=== PATIENT | male | born 1990 | race Caucasian/White ===

== ENCOUNTER 2017-08-08 02:56 | Emergency (ER) | payer MEDICAID, OTHER ==
[~2017-08-08] VITALS: Ht 185.4 cm; Wt 93.0 kg
[2017-08-08 02:56] VITALS: BP_SYST 125
[~2017-08-08 02:56] MED LIST: BECL8.7A6
[2017-08-08 04:00] VITALS: BP_SYST 134
== END 2017-08-08 04:00 | disposition home or self-care (01) ==
LOC: SED 02:56
DX: F15.10 Other stimulant abuse, uncomplicated (principal); J45.909 Unspecified asthma, uncomplicated; F17.210 Nicotine dependence, cigarettes, uncomplicated
CPT/HCPCS: 99283

== ENCOUNTER 2017-10-15 17:17 | Emergency (ER) | payer OTHER ==
[~2017-10-15] VITALS: Ht 185.4 cm; Wt 90.7 kg
[2017-10-15 17:26] VITALS: BP_SYST 141
[2017-10-15 17:43] VITALS: BP_SYST 128
== END 2017-10-15 17:43 | disposition home or self-care (01) ==
LOC: SED 17:17
DX: S60.456A Superficial foreign body of right little finger, initial encounter (principal); R03.0 Elevated blood-pressure reading, without diagnosis of hypertension; J45.909 Unspecified asthma, uncomplicated; W22.8XXA Striking against or struck by other objects, initial encounter; Y93.89 Activity, other specified; Y92.89 Other specified places as the place of occurrence of the external cause; Y99.8 Other external cause status
CPT/HCPCS: 99284

== ENCOUNTER 2018-01-24 04:59 | Emergency (ER) | payer SELFPAY ==
[~2018-01-24] VITALS: Ht 185.4 cm; Wt 83.9 kg
[2018-01-24 05:07] VITALS: BP_SYST 147
[2018-01-24] MEDS ORDERED: ceFAZolin SODIUM 1 GM VIAL IM ONE (06:30)
[2018-01-24 06:53] VITALS: BP_SYST 132
== END 2018-01-24 06:53 | disposition home or self-care (01) ==
LOC: SED 04:59
DX: L03.115 Cellulitis of right lower limb (principal); L03.116 Cellulitis of left lower limb; R03.0 Elevated blood-pressure reading, without diagnosis of hypertension; J45.909 Unspecified asthma, uncomplicated; Z91.09 Other allergy status, other than to drugs and biological substances
CPT/HCPCS: 96372; 99283; J0690

== ENCOUNTER 2018-11-08 17:59 | Emergency (ER) | payer MEDICAID ==
[~2018-11-08] VITALS: Ht 185.4 cm; Wt 95.3 kg
[2018-11-08 18:05] VITALS: BP_SYST 132
--- NOTE | 2018-11-08 18:05 | NUR ---
Patient triaged and placed in waiting room. VSS and patient appears in no acute distress at this time. Accompanied by self, awaiting available bed, and MD notified of need for MSE.
--- NOTE | 2018-11-08 18:43 | NUR ---
BROUGHT BACK TO BED #4 AND REPORT GIVEN TO MALINDA
--- NOTE | 2018-11-08 18:48 | NUR ---
NATI PRICE examining patient.
--- NOTE | 2018-11-08 18:53 | NUR ---
PATIENT CAME IN COMPLAINING OF SPIDER BITE THAT HE GOT 2 DAYS AGO. PATIENT NOT COMPLAINING OF PAIN, SOB, NAUSEA, OR VOMITING. PATIENT SAID IT WAS A BUMP YESTERDAY AND GOT WORST TODAY SO HE WANTED IT TO GET CHECKED OUT. PATIENT ALERT AND ORIENTED X4.
[2018-11-08] MEDS ORDERED: IBUPROFEN 800 MG TABLET PO ONE (19:00)
[2018-11-08] MEDS ORDERED: CEPHALEXIN 500 MG CAPSULE PO ONE (19:00)
[2018-11-08] MEDS ORDERED: SULFAMETHOXAZOLE/TRIMETHOPR DS 1 TABLET PO ONE (19:00)
[2018-11-08 19:14] VITALS: BP_SYST 132
--- NOTE | 2018-11-08 19:16 | NUR ---
Patient given written and verbal discharge instructions and verbalizes understanding. ER MD discussed with patient the results and treatment provided. Patient in stable condition. ID arm band removed. IV catheter removed intact and dressing applied, no active bleeding. Rx of Keflex, Mupirocin, Bactrim, and Motrin given. Patient educated on pain management and to follow up with PMD. Pain Scale 0/10. Opportunity for questions provided and answered. Medication side effect fact sheet provided.
== END 2018-11-08 19:16 | disposition home or self-care (01) ==
LOC: SED 17:59
DX: S00.86XA Insect bite (nonvenomous) of other part of head, initial encounter (principal); F17.210 Nicotine dependence, cigarettes, uncomplicated; R03.0 Elevated blood-pressure reading, without diagnosis of hypertension; J45.909 Unspecified asthma, uncomplicated; Z91.048 Other nonmedicinal substance allergy status; Z71.6 Tobacco abuse counseling; W57.XXXA Bitten or stung by nonvenomous insect and other nonvenomous arthropods, initial encounter; Y93.89 Activity, other specified; Y92.89 Other specified places as the place of occurrence of the external cause; Y99.8 Other external cause status
CPT/HCPCS: 99284

== ENCOUNTER 2019-04-28 18:36 | Emergency (ER) | payer MEDICAID ==
[~2019-04-28] VITALS: Ht 185.4 cm; Wt 81.6 kg
[2019-04-28 19:55] VITALS: BP_SYST 125
--- NOTE | 2019-04-28 20:05 | NUR ---
Pt placed to ER waiting room in stable condition.
--- NOTE | 2019-04-28 21:42 | NUR ---
Pt placed to ER bed 06. Report to VIVEK Nevarez.
--- NOTE | 2019-04-28 22:10 | NUR ---
Dr. Elizondo bedside for Pt eval
[2019-04-28] MEDS ORDERED: CEPHALEXIN 500 MG CAPSULE PO ONE (22:15)
[2019-04-28] MEDS ORDERED: LIDOCAINE/EPI 1% 1:100000 20 ML VIAL INJ ONE (22:15)
[2019-04-28] MEDS ORDERED: HYDROcodone/ACETAMIN 5-325 MG TAB (NORCO/ VICODIN) PO ONE (22:15)
[2019-04-28] MEDS ORDERED: SULFAMETHOXAZOLE/TRIMETHOPR DS 1 TABLET PO ONE (22:15)
[2019-04-28] MEDS ORDERED: ONDANSETRON 4 MG ODT TAB PO ONE (22:15)
--- NOTE | 2019-04-28 22:20 | NUR ---
Pt BIB family to ED C/O redness and swelling to the right upper extremity, localized lateral to antecubital appearance of abscess. The patient reports swelling and redness developed 2 days ago, gradually worsening. No other complaints and or injuries noted. VSS no s/s of acute distress. Resting on gurney rails up
[2019-04-28 23:35] VITALS: BP_SYST 125
--- NOTE | 2019-04-28 23:35 | NUR ---
Patient given written and verbal discharge instructions and verbalizes understanding. ER MD discussed with patient the results and treatment provided. Patient in stable condition. ID arm band removed. Rx of Bactrim, Zofran, keflex given. Patient educated on pain management and to follow up with PMD. Pain Scale Opportunity for questions provided and answered. Medication side effect fact sheet provided.
== END 2019-04-28 23:35 | disposition home or self-care (01) ==
LOC: SED 18:36
DX: L02.413 Cutaneous abscess of right upper limb (principal); J45.909 Unspecified asthma, uncomplicated
CPT/HCPCS: 10060; 99284; Q0162

== ENCOUNTER 2019-05-11 04:41 | Emergency (ER) | payer MEDICAID ==
[~2019-05-11] VITALS: Ht 185.4 cm; Wt 81.6 kg
[2019-05-11 04:44] VITALS: BP_SYST 153
[2019-05-11] MEDS ORDERED: PREDNISONE 10 MG TABLET PO ONE (05:00)
[2019-05-11] MEDS ORDERED: LevALBUTEROL HCL 1.25 MG/0.5 ML *CONC.* VIAL.NEB (XOPENEX CONC.) INH ONE ×3 (05:00→05:28)
[2019-05-11] MEDS ORDERED: PREDNISONE 20 MG TABLET PO ONE (05:00)
[2019-05-11] MEDS ORDERED: IPRATROPIUM BROM 0.5 MG/2.5 ML VIAL.NEB (ATROVENT) IH ONE (05:00)
[2019-05-11] MEDS ORDERED: PREDNISONE 10 MG TABLET ONE (05:14)
[2019-05-11] MEDS ORDERED: IPRATROPIUM BROM 0.5 MG/2.5 ML VIAL.NEB (ATROVENT) INH ONE (05:28)
[2019-05-11 05:41] VITALS: BP_SYST 153
== END 2019-05-11 05:46 | disposition home or self-care (01) ==
LOC: SED 04:41
DX: J45.901 Unspecified asthma with (acute) exacerbation (principal); I10 Essential (primary) hypertension; R06.02 Shortness of breath; F17.290 Nicotine dependence, other tobacco product, uncomplicated; F12.90 Cannabis use, unspecified, uncomplicated
CPT/HCPCS: 94640; 99284; J7512; J7612

== ENCOUNTER 2019-06-17 11:56 | Emergency (ER) | payer MEDICAID ==
[~2019-06-17] VITALS: Ht 185.4 cm; Wt 86.2 kg
[2019-06-17 11:56] VITALS: BP_SYST 117
--- NOTE | 2019-06-17 11:56 | NUR ---
BROUGHT BACK TO BED #8 AND TRIAGED. REPORT GIVEN TO MAR
--- NOTE | 2019-06-17 11:57 | NUR ---
ER Dr. Sigala at bedside examining patient.
--- NOTE | 2019-06-17 12:05 | NUR ---
Patient presented to ER with difficulty breathing. Patient A&Ox4, afebrile, ambulatory to ER, skin pink and warm, wheezing, pain 01/24, denies N/V/D. Patient states he has difficulty breathing today since he woke up this morning. Patient states he has HX Asthma and ran out of Albuterol inhaler.
[2019-06-17] MEDS ORDERED: NACL 0.9% 1,000 ML IV ONE (12:15)
[2019-06-17] MEDS ORDERED: IPRATROPIUM/ALBUTEROL SULFATE 3 ML AMPUL.NEB (DUONEB) INH ONE ×2 (12:15→12:45)
[2019-06-17] MEDS ORDERED: methylPREDNISolone SOD SUCC/PF 62.5 MG/ML VIAL IVP ONE (12:15)
--- NOTE | 2019-06-17 12:26 | NUR ---
2 unsuccessful IV attempts made. Patient is refusing further IV attempts, states he feels better. Dr. Sigala made aware.
[2019-06-17 13:35] VITALS: BP_SYST 117
--- NOTE | 2019-06-17 13:35 | NUR ---
Patient given written and verbal discharge instructions and verbalizes understanding. ER MD discussed with patient the results and treatment provided. Patient in stable condition. ID arm band removed. IV catheter removed intact and dressing applied, no active bleeding. Rx of albuterol, prednisone, flovent given. Patient educated on pain management and to follow up with PMD. Pain Scale 0/10. Opportunity for questions provided and answered. Medication side effect fact sheet provided.
== END 2019-06-17 13:35 | disposition home or self-care (01) ==
LOC: SED 11:56
DX: J45.901 Unspecified asthma with (acute) exacerbation (principal); F17.210 Nicotine dependence, cigarettes, uncomplicated; Z91.048 Other nonmedicinal substance allergy status; Z79.899 Other long term (current) drug therapy; Z71.6 Tobacco abuse counseling
CPT/HCPCS: 94640; 99284; J2930; J7620; 99283

== ENCOUNTER 2019-10-12 13:28 | Emergency (ER) | payer MEDICAID ==
[~2019-10-12] VITALS: Ht 185.4 cm; Wt 83.9 kg
[2019-10-12 13:28] VITALS: BP_SYST 130
[2019-10-12 15:40] VITALS: BP_SYST 130
== END 2019-10-12 15:40 | disposition home or self-care (01) ==
LOC: SED 13:28
DX: H44.003 Unspecified purulent endophthalmitis, bilateral (principal); J45.909 Unspecified asthma, uncomplicated; Z91.09 Other allergy status, other than to drugs and biological substances
CPT/HCPCS: 99283

== ENCOUNTER 2019-10-30 07:14 | Emergency (ER) | payer MEDICAID ==
[~2019-10-30] VITALS: Ht 185.4 cm; Wt 72.6 kg
[2019-10-30 07:21] VITALS: BP_SYST 110
[2019-10-30] MEDS ORDERED: NACL 0.9% 1,000 ML IV ONE (07:45)
[2019-10-30 08:03] LABS: BASOPHILS % (AUTO) 0.2 % (0.0-2.0); EOSINOPHILS # (AUTO) 0.1 K/uL (0.0-0.4); HEMATOCRIT 43.2 % (36-54); HEMOGLOBIN 14.9 g/dL (14.0-18.0); LYMPHOCYTES # (AUTO) 0.2 K/uL (1.0-5.5); LYMPHOCYTES % (AUTO) 2.4 % (20.5-51.5); MEAN CORPUSCULAR HEMOGLOBIN 29 pg (27-31); MEAN CORPUSCULAR HGB CONC 35 % (32-36); MEAN CORPUSCULAR VOLUME 85 fL (79.0-98.0); MONOCYTES % (AUTO) 0.5 % (1.7-9.3); NEUTROPHILS # (AUTO) 8.8 K/uL (1.8-7.7); NEUTROPHILS % (AUTO) 95.9 % (40.0-70.0); PLATELET COUNT (AUTO) 229 K/uL (130-430); RED BLOOD CELL COUNT(AUTO) 5.06 MIL/uL (4.2-6.2); RED CELL DISTRIBUTION WIDTH 13.7 % (9.0-15.0); WHITE BLOOD COUNT (AUTO) 9.2 K/uL (4.8-10.8)
[2019-10-30 08:16] LABS: CREATININE 1.06 mg/dL (0.55-1.30); POTASSIUM 3.3 mmol/L (3.5-5.1)
[2019-10-30 08:22] LABS: ALBUMIN 3.4 g/dL (3.4-4.8); TOTAL BILIRUBIN 1.7 mg/dL (0.0-1.0)
[2019-10-30 09:54] VITALS: BP_SYST 115
== END 2019-10-30 09:55 | disposition home or self-care (01) ==
LOC: SED 07:14
DX: M54.5 Low back pain (principal); J45.909 Unspecified asthma, uncomplicated; F15.90 Other stimulant use, unspecified, uncomplicated; Z88.8 Allergy status to other drugs, medicaments and biological substances
CPT/HCPCS: 36415; 80053; 82550; 85025; 99283; J7030

== ENCOUNTER 2020-01-15 14:51 | Emergency (ER) | payer MEDICAID ==
[~2020-01-15] VITALS: Ht 185.4 cm; Wt 86.2 kg
[2020-01-15 15:27] VITALS: BP_SYST 108
--- NOTE | 2020-01-15 15:50 | NUR ---
Called patient x1, no answer
--- NOTE | 2020-01-15 15:55 | NUR ---
Called pt x 2 , no answer
--- NOTE | 2020-01-15 16:30 | NUR ---
Called patient x 3, no answer.Pt LWBS
== END 2020-01-15 16:30 | disposition left against medical advice (07) ==
LOC: SED 14:51
DX: M79.601 Pain in right arm (principal); Z53.21 Procedure and treatment not carried out due to patient leaving prior to being seen by health care provider

== ENCOUNTER 2020-03-19 18:59 | Emergency (ER) | payer MEDICAID ==
[~2020-03-19] VITALS: Ht 185.4 cm; Wt 81.6 kg
[2020-03-19 19:00] VITALS: BP_SYST 137
--- NOTE | 2020-03-19 19:00 | NUR ---
Patient to ER bed 5 to gown for evaluation. Side rails up. Report given to JENELLE.
--- NOTE | 2020-03-19 19:10 | NUR ---
ER at bedside examining patient.
--- NOTE | 2020-03-19 19:15 | NUR ---
Pt biba for overdose of heroin and meth x today. Pt AxOx4 and cooperative, pt used his own narcan at home. Denies SOB, LOC, OR PAIN at this time. Will continue to monitor.
--- NOTE | 2020-03-19 20:35 | NUR ---
Pt wants to leave, aware. Pt able to walk w/ steady gait, O2 at 97-98 when walking. Denies dizziness. Pt states not having any narcan at home. Pt will be given narcan prescription. Pt given 24 hr pharmacy list, educated on getting narcan prescription if patient uses again.
--- NOTE | 2020-03-19 20:40 | NUR ---
Patient given written and verbal discharge instructions and verbalizes understanding. ER MD discussed with patient the results and treatment provided. Patient in stable condition. ID arm band removed. Rx of Narcan given. Patient educated on pain management and to follow up with PMD. PATIENT PROVIDED 24 HR PHARMACY LIST. Opportunity for questions provided and answered. Medication side effect fact sheet provided.
[2020-03-19 20:41] VITALS: BP_SYST 129
== END 2020-03-19 20:40 | disposition home or self-care (01) ==
LOC: SED 18:59
DX: T40.1X1A Poisoning by heroin, accidental (unintentional), initial encounter (principal); J45.909 Unspecified asthma, uncomplicated; F15.90 Other stimulant use, unspecified, uncomplicated; Z88.8 Allergy status to other drugs, medicaments and biological substances; Y92.89 Other specified places as the place of occurrence of the external cause
CPT/HCPCS: 99283

== ENCOUNTER 2020-05-02 01:38 | Emergency (ER) | payer MEDICAID ==
[~2020-05-02] VITALS: Ht 185.4 cm; Wt 79.4 kg
[2020-05-02 02:15] VITALS: BP_SYST 129
[2020-05-02] MEDS: NACL 0.9% 1,000 ML IV ONE (03:04)
[2020-05-02 03:07] LABS: HEMATOCRIT 44.2 % (36-54); HEMOGLOBIN 15.2 g/dL (14.0-18.0); MEAN CORPUSCULAR HEMOGLOBIN 28 pg (27-31); MEAN CORPUSCULAR HGB CONC 34 % (32-36); MEAN CORPUSCULAR VOLUME 81 fL (79.0-98.0); PLATELET COUNT (AUTO) 309 K/uL (130-430); RED BLOOD CELL COUNT(AUTO) 5.45 MIL/uL (4.2-6.2); WHITE BLOOD COUNT (AUTO) 13.4 K/uL (4.8-10.8)
[2020-05-02 03:09] LABS: BILIRUBIN,URINE NEGATIVE (NEGATIVE); BLOOD, URINE 1+ (NEGATIVE); CLARITY/URINE SL CLOUDY (CLEAR); COLOR,URINE YELLOW (YELLOW); GLUCOSE,URINE NEGATIVE (NEGATIVE); KETONES,URINE NEGATIVE (NEGATIVE); LEUKOCYTE ESTERASE ,URINE 1+ (NEGATIVE); NITRITE, URINE NEGATIVE (NEGATIVE); PROTEIN URINE 1+ (NEGATIVE); UROBILINOGEN,URINE 0.2 (0.2-1.0)
[2020-05-02 03:20] LABS: BARBITURATE, URINE NEGATIVE (NEG <=200); BENZODIAZEPINE, URINE NEGATIVE (NEG <=150); CANNABINOID, URINE POSITIVE (NEG <=50); COCAINE, URINE NEGATIVE (NEG <=150); METHAMPHETAMINES SCREEN,URINE POSITIVE (NEG <=500); OPIATE, URINE POSITIVE (NEG <=100); PHENCYCLIDINE SCREEN,URINE NEGATIVE (NEG <=25); UR TRICYCLIC ANTIDEPRESSANTS NEGATIVE (NEG <=300); URINE AMPHETAMINE POSITIVE (NEG <=500); URINE METHADONE NEGATIVE (NEG <=200); URINE OXYCODONE SCREEN NEGATIVE (NEG <=100); URINE PROPOXYPHENE SCREEN NEGATIVE (NEG <=300)
[2020-05-02 03:30] LABS: CALCIUM 8.5 mg/dL (8.4-11.0); CREATININE 0.7 mg/dL (0.55-1.30); POTASSIUM 3.3 mmol/L (3.5-5.1)
[2020-05-02 03:34] LABS: BACTERIA,URINE FEW /HPF (None Seen); RBC,URINE >100 /HPF (0-3); WBC,URINE >100 /HPF (0-3)
[2020-05-02 03:35] LABS: TOTAL BILIRUBIN 0.3 mg/dL (0.0-1.0)
[2020-05-02 03:45] LABS: ATYPICAL LYMPHOCYTES % 0 % (0-0); BAND % (MANUAL) 0 % (0-6); BASOPHILS % (MANUAL) 0 % (0-2); EOSINOPHILS % (MANUAL) 19 % (0-7); LYMPHOCYTES % (MANUAL) 11 % (20-46); MONOCYTES % (MANUAL) 6 % (0-11)
[2020-05-02] MEDS: KETOROLAC TROMETHAMINE 30 MG VIAL IVP ONE (03:54)
[2020-05-02] MEDS: cefTRIAXone 1 GM IVPB PREMIX 50 ML IV ONE (03:54)
[2020-05-02] MEDS: POTASSIUM CHLORIDE 20 MEQ TAB.PRT.SR PO ONE (03:55)
[2020-05-02] MEDS: AZITHROMYCIN 250 MG TABLET PO ONE (03:55)
[2020-05-02 04:55] VITALS: BP_SYST 123
== END 2020-05-02 04:55 | disposition home or self-care (01) ==
LOC: SED 01:38
DX: N39.0 Urinary tract infection, site not specified (principal); R10.12 Left upper quadrant pain; J45.909 Unspecified asthma, uncomplicated; Z88.8 Allergy status to other drugs, medicaments and biological substances
CPT/HCPCS: 36415; 80053; 80307; 81000; 82550; 83690; 85007; 85027; 87086; 96361; 96365; 96375; 99284; J0696; J1885; J7030; Q0144

== ENCOUNTER 2020-05-10 01:21 | Inpatient (IN) | payer MEDICAID, SELFPAY ==
[~2020-05-10] VITALS: Ht 185.4 cm; Wt 80.1 kg
[2020-05-10 01:25] VITALS: BP_SYST 119
--- NOTE | 2020-05-10 01:25 | NUR ---
Patient to ER bed 5 to gown for evaluation. Side rails up. Report given to NOVEMBER.
[2020-05-10] MEDS ORDERED: KETOROLAC TROMETHAMINE 30 MG VIAL IVP ONE (01:30)
--- NOTE | 2020-05-10 01:30 | NUR ---
PT AAO AND BIB AMBULANCE FOR ABDOMINAL PAIN X 1 DAY AFTER USING HEROIN. PT REPORTS CURRENT UTI INFECTION FOR THE PAST WEEK AND IS CURRENTLY TAKING PRESCRIBED ANBX. PT CURRENTLY HAS 102.5 FEVER AND SPO2 IN MID-80'S ON ARRIVAL. O2 APPLIED AT 3L NC. SPO2 NOW 94%
--- NOTE | 2020-05-10 01:35 | NUR ---
ER Dr. HERRERA at bedside examining patient.
--- NOTE | 2020-05-10 01:45 | NUR ---
Blood for labwork drawn from [facility] [employer]. Patient tolerated well.
--- NOTE | 2020-05-10 02:02 | NUR ---
X-ray at bedside.
[2020-05-10 02:06] LABS: BASOPHILS % (AUTO) 0.1 % (0.0-2.0); EOSINOPHILS % (AUTO) 9.8 % (0.0-4.0); HEMATOCRIT 40.3 % (36-54); HEMOGLOBIN 13.6 g/dL (14.0-18.0); LYMPHOCYTES # (AUTO) 0.2 K/uL (1.0-5.5); LYMPHOCYTES % (AUTO) 2.2 % (20.5-51.5); MEAN CORPUSCULAR HEMOGLOBIN 28 pg (27-31); MEAN CORPUSCULAR HGB CONC 34 % (32-36); MEAN CORPUSCULAR VOLUME 82 fL (79.0-98.0); MONOCYTES % (AUTO) 0.4 % (1.7-9.3); NEUTROPHILS # (AUTO) 8.6 K/uL (1.8-7.7); NEUTROPHILS % (AUTO) 87.5 % (40.0-70.0); PLATELET COUNT (AUTO) 222 K/uL (130-430); RED CELL DISTRIBUTION WIDTH 14.2 % (9.0-15.0); WHITE BLOOD COUNT (AUTO) 9.8 K/uL (4.8-10.8)
[2020-05-10 02:11] LABS: BILIRUBIN,URINE NEGATIVE (NEGATIVE); BLOOD, URINE NEGATIVE (NEGATIVE); CLARITY/URINE CLEAR (CLEAR); COLOR,URINE YELLOW (YELLOW); GLUCOSE,URINE NEGATIVE (NEGATIVE); KETONES,URINE NEGATIVE (NEGATIVE); LEUKOCYTE ESTERASE ,URINE NEGATIVE (NEGATIVE); NITRITE, URINE NEGATIVE (NEGATIVE); PH,URINE 5.5 (5.0-8.0); PROTEIN URINE NEGATIVE (NEGATIVE); UROBILINOGEN,URINE 0.2 (0.2-1.0)
[2020-05-10 02:23] LABS: BARBITURATE, URINE NEGATIVE (NEG <=200); BENZODIAZEPINE, URINE NEGATIVE (NEG <=150); CANNABINOID, URINE POSITIVE (NEG <=50); COCAINE, URINE NEGATIVE (NEG <=150); METHAMPHETAMINES SCREEN,URINE POSITIVE (NEG <=500); OPIATE, URINE POSITIVE (NEG <=100); PHENCYCLIDINE SCREEN,URINE NEGATIVE (NEG <=25); UR TRICYCLIC ANTIDEPRESSANTS NEGATIVE (NEG <=300); URINE AMPHETAMINE POSITIVE (NEG <=500); URINE METHADONE NEGATIVE (NEG <=200); URINE OXYCODONE SCREEN NEGATIVE (NEG <=100); URINE PROPOXYPHENE SCREEN NEGATIVE (NEG <=300)
--- NOTE | 2020-05-10 02:27 | NUR ---
Patient resting quietly. No acute distress noted. Vital signs within normal range.
[2020-05-10 02:29] LABS: ANION GAP 7 (5-15); CALCIUM 8.1 mg/dL (8.4-11.0); CHLORIDE 104 mmol/L (98-107); GLUCOSE 98 mg/dL (70-99); SODIUM SERUM 140 mmol/L (136-145); UREA NITROGEN, BLOOD 14 mg/dL (8-21)
[2020-05-10 02:34] LABS: ALANINE AMINOTRANSFERASE 54 U/L (12-78); ALBUMIN 2.9 g/dL (3.4-4.8); ASPARTATE AMINOTRANSFERASE 120 U/L (10-37); GFR AFRICAN AMERICAN 103 mL/min (>90); LACTATE DEHYDROGENASE 343 U/L (85-227)
[2020-05-10 02:35] LABS: C-REACTIVE PROTEIN QUANT < 0.2 mg/dL (0-0.5); INR 1.2 (0.80-1.20); PROTHROMBIN TIME 12.1 SECS (9.5-12.5)
[2020-05-10 02:36] LABS: FIBRINOGEN 286 mg/dL (200-400)
[2020-05-10] MEDS ORDERED: POTASSIUM CHLORIDE 20 MEQ TAB.PRT.SR PO ONE (02:45)
--- NOTE | 2020-05-10 02:50 | NUR ---
# 20 gauge angiocath placed to right forearm. Use of asceptic technique. Opsite placed over site. Blood return noted. Blood for lab drawn from site. Flushed with 10 cc of normal saline. No evidence of infiltration noted. Patient tolerated well.
--- NOTE | 2020-05-10 02:55 | NUR ---
Patient signed consent for CT scan with contrast.
--- NOTE | 2020-05-10 03:12 | NUR ---
Patient transported to radiology via gurney, accompanied by RT and RN.
[2020-05-10] MEDS ORDERED: IOHEXOL 350 mgI/mL, 150 ML INFUS..BTL IV ONE (03:18)
--- NOTE | 2020-05-10 03:23 | NUR ---
Patient came back from CT scan.
--- NOTE | 2020-05-10 03:29 | NUR ---
Patient is sleeping, Oxygen 88% RA, place Oxygen canula 3 L/min -Oxygen sat 95 %
[2020-05-10] MEDS ORDERED: PIPERACILLIN/TAZO 3.375 GM in NS 50 ML IV ONE (04:00)
[2020-05-10] MEDS ORDERED: NACL 0.9% 1,500 ML IV ONE (04:00)
--- NOTE | 2020-05-10 04:15 | NUR ---
Patient resting quietly. No acute distress noted. Vital signs within normal range.
[2020-05-10] MEDS ORDERED: PIPERACILLIN/TAZOBACTAM 3.375 GM/VIAL (ZOSYN) IV ONE (04:23)
--- NOTE | 2020-05-10 04:36 | NUR ---
Dr. Kelly at bedside to discuss with patient for treatment plan.
--- NOTE | 2020-05-10 05:17 | NUR ---
Patient woke up, provide a urinal.
--- NOTE | 2020-05-10 05:41 | NUR ---
Patient resting quietly. No acute distress noted. Vital signs within normal range.
--- NOTE | 2020-05-10 06:17 | NUR ---
Swabbed for Covid-19 as order and sent to lab.
--- NOTE | 2020-05-10 06:22 | NUR ---
Patient will be admitted to care of Dr. Carnes. Admitted to Tele unit. Will go to room 124B. Belongings list completed. Complete and up to date summary report printed. SBAR report to be given at bedside with opportunity for questions.
--- NOTE | 2020-05-10 06:38 | NUR ---
ADMISSION NOTE Received patient from ER via gurney. Patient admitted with diagnosis of PNEUMONIA. Patient is awake, alert, oriented X 4. Patient oriented to hospital room, call light, toileting, pain management and safety-teach back done. Patient informed that JONES will be HIS nurse and that their room number is 124B. Personal belongings checked and Belongings List documented. Call light within reach.
[2020-05-10 07:00] VITALS: BP_SYST 91
--- NOTE | 2020-05-10 07:03 | NUR ---
CONSULTATION PAGED/CALLED Reason for Consultation: [] PNA Person Who was Notified: [] PAGED DR BATES DIRECTLY Consulting Physician: [] DR Ksenia BATES Stripe Marker Specialty: [] PULMO Ordering Physician: [] DR PAREDES
--- NOTE | 2020-05-10 07:07 | NUR ---
CONSULTATION PAGED/CALLED Reason for Consultation: [] PNA Person Who was Notified: [] CHRIS Consulting Physician: [] DR MYRNA IVY Oil Well Logger Specialty: [] ID Ordering Physician: [] DR Ksenia PAREDES
[2020-05-10] MEDS ORDERED: NALOXONE HCL 0.4 MG/ML AMP (NARCAN) IVP PRN ×2 (07:30)
[2020-05-10] MEDS ORDERED: HYDROcodone/ACETAMIN 10-325 MG TAB PO PRN (07:30)
[2020-05-10] MEDS ORDERED: ACETAMINOPHEN 325 MG TABLET PO PRN (07:30)
[2020-05-10] MEDS ORDERED: LORazepam 2 MG/ML VIAL IVP PRN (07:30)
[2020-05-10] MEDS ORDERED: ALBUTEROL SULFATE 0.083% 2.5 MG/3 ML VIAL.NEB INH PRN (07:30)
[2020-05-10] MEDS ORDERED: HYDROcodone/ACETAMIN 5-325 MG TAB (NORCO/ VICODIN) PO PRN (07:30)
[2020-05-10] MEDS ORDERED: ONDANSETRON HCL 4 MG/2 ML VIAL IVP PRN (07:30)
[2020-05-10] MEDS ORDERED: D5/0.45 NS 1,000 ML IV SCH (07:30)
[2020-05-10 08:00] VITALS: BP_SYST 121
--- NOTE | 2020-05-10 08:00 | NUR ---
Initial note: Patient is alert, oriented x4, denies any pain or discomfort, only states hungry , need to eat food. Found 2 sandwiches plates empty at bedside, and serve him a breakfast tray. He is also on IVF D5 1/2 NS at 100 ml/hr, infusing well via right forearm # 20 G.
[2020-05-10 08:56] VITALS: BP_SYST 121
--- NOTE | 2020-05-10 10:30 | NUR ---
Ambulatory: Patient walks to the bathroom well with IV pole by himself. He did have Voided and 1 normal BM.
[2020-05-10] MEDS ORDERED: IPRATROPIUM BROM 0.5 MG/2.5 ML VIAL.NEB (ATROVENT) INH SCH (11:00)
[2020-05-10 11:42] VITALS: BP_SYST 94
[2020-05-10] MEDS ORDERED: PIPERACILLIN/TAZO 3.375/DEX-IS 50 ML IV SCH (12:00)
--- NOTE | 2020-05-10 13:31 | NUR ---
ATTENDING MD DR PAREDES WAS DIRECTLY PAGED, RE: INFORM HIM THAT PT LEFT AMA.
--- NOTE | 2020-05-10 13:46 | NUR ---
AMA: I was on my lunch break in cafeteria. Saw a patient was walking inside the cafeteria with private outfit but still have patient's ID on his wrist. Spoke to the patient but he states he wants to leave, because he doesn't have lunch tray. Inform him that he needs to be NPO for abdominal US, and he finished double portion for his breakfast. He states that he normally eat a lot. Tell him that the wind technician will be doing the test in 10 min then he can eat. But he still doesn't want to stay. Explain to him about risk of leaving and benefit of stay. He still insisting to leave. Give him sign AMA form, IV site got removed by himself, no sign of bleeding noted. ID band removed.
== END 2020-05-10 13:00 | disposition left against medical advice (07) | DRG 816 ==
LOC: SED 01:21 → STU 06:04
PROVIDERS: ADMIT Preventive Medicine Preventive Medicine/Occupational Environmental Medicine; ATTEND Preventive Medicine Preventive Medicine/Occupational Environmental Medicine
DX: T40.1X1A Poisoning by heroin, accidental (unintentional), initial encounter (principal); E87.2 Acidosis; E83.51 Hypocalcemia; E87.6 Hypokalemia; F15.10 Other stimulant abuse, uncomplicated; E88.09 Other disorders of plasma-protein metabolism, not elsewhere classified; F12.10 Cannabis abuse, uncomplicated; J69.0 Pneumonitis due to inhalation of food and vomit; F11.10 Opioid abuse, uncomplicated; J45.909 Unspecified asthma, uncomplicated; J96.00 Acute respiratory failure, unspecified whether with hypoxia or hypercapnia; Z20.828 Contact with and (suspected) exposure to other viral communicable diseases; R16.2 Hepatomegaly with splenomegaly, not elsewhere classified; Y92.89 Other specified places as the place of occurrence of the external cause
CPT/HCPCS: 36415; 36600; 71045; 71275; 80053; 80307; 81003; 82550-TC; 82728; 82803-TC; 83605; 83615-TC; 83880; 84484; 85025; 85379; 85384-TC; 85610-TC; 85730-TC; 86140; 87040-TC; 87086; 93005; 94640; 94760; 96365; 96368; 96372; 99291; G0378; J1885; J2543; J7613; Q9967; U0003

== ENCOUNTER 2020-05-10 18:52 | Inpatient (IN) | payer MEDICAID ==
[~2020-05-10] VITALS: Ht 185.4 cm; Wt 79.8 kg
[2020-05-10 19:00] VITALS: BP_SYST 110
[2020-05-10] MEDS ORDERED: KETOROLAC TROMETHAMINE 30 MG VIAL IM ONE (20:00)
[2020-05-10 20:07] LABS: HEMATOCRIT 32.7 % (36-54); HEMOGLOBIN 11.2 g/dL (14.0-18.0); MEAN CORPUSCULAR HEMOGLOBIN 28 pg (27-31)
[2020-05-10 20:14] LABS: MEAN CORPUSCULAR HGB CONC 34 % (32-36); MEAN CORPUSCULAR VOLUME 81 fL (79.0-98.0); PLATELET COUNT (AUTO) 190 K/uL (130-430); RED BLOOD CELL COUNT(AUTO) 4.04 MIL/uL (4.2-6.2); RED CELL DISTRIBUTION WIDTH 14.4 % (9.0-15.0)
[2020-05-10 20:19] LABS: CALCIUM 7.2 mg/dL (8.4-11.0); CHLORIDE 101 mmol/L (98-107); CREATININE 0.98 mg/dL (0.55-1.30); GLUCOSE 112 mg/dL (70-99); POTASSIUM 3.3 mmol/L (3.5-5.1); SODIUM SERUM 135 mmol/L (136-145); UREA NITROGEN, BLOOD 14 mg/dL (8-21); WHITE BLOOD COUNT (AUTO) 26.4 K/uL (4.8-10.8)
[2020-05-10 20:24] LABS: ANION GAP 3 (5-15); GFR AFRICAN AMERICAN 117 mL/min (>90)
[2020-05-10 20:25] LABS: ALANINE AMINOTRANSFERASE 73 U/L (12-78); ALBUMIN 2.3 g/dL (3.4-4.8); ASPARTATE AMINOTRANSFERASE 65 U/L (10-37); TOTAL BILIRUBIN 0.9 mg/dL (0.0-1.0)
[2020-05-10 20:34] LABS: ACETAMINOPHEN < 1 ug/mL (1-30); ALCOHOL, BLOOD < 3 mg/dL (<10)
[2020-05-10 21:04] LABS: BAND % (MANUAL) 34 % (0-6); BASOPHILS % (MANUAL) 0 % (0-2); EOSINOPHILS % (MANUAL) 2 % (0-7); LYMPHOCYTES % (MANUAL) 0 % (20-46); MONOCYTES % (MANUAL) 2 % (0-11)
[2020-05-10] MEDS ORDERED: NACL 0.9% 2,000 ML IV ONE (21:45)
[2020-05-10] MEDS ORDERED: PIPERACILLIN/TAZO 3.375 GM in NS 50 ML IV ONE (21:45)
[2020-05-10] MEDS ORDERED: VANCOMYCIN HCL 1,000 MG in NS 250 ML IV ONE (21:45)
[2020-05-10] MEDS ORDERED: PIPERACILLIN/TAZOBACTAM 3.375 GM/VIAL (ZOSYN) IV ONE (22:18)
[2020-05-10] MEDS ORDERED: VANCOMYCIN HCL 1000 MG/VIAL IV ONE (22:18)
[2020-05-10 23:18] LABS: BARBITURATE, URINE NEGATIVE (NEG <=200)
[2020-05-10 23:19] LABS: BENZODIAZEPINE, URINE NEGATIVE (NEG <=150); CANNABINOID, URINE NEGATIVE (NEG <=50); COCAINE, URINE NEGATIVE (NEG <=150); METHAMPHETAMINES SCREEN,URINE POSITIVE (NEG <=500); OPIATE, URINE POSITIVE (NEG <=100); PHENCYCLIDINE SCREEN,URINE NEGATIVE (NEG <=25); URINE AMPHETAMINE POSITIVE (NEG <=500); URINE METHADONE NEGATIVE (NEG <=200)
[2020-05-10 23:20] LABS: UR TRICYCLIC ANTIDEPRESSANTS NEGATIVE (NEG <=300); URINE OXYCODONE SCREEN NEGATIVE (NEG <=100); URINE PROPOXYPHENE SCREEN NEGATIVE (NEG <=300)
[2020-05-11 04:13] LABS: BILIRUBIN,URINE NEGATIVE (NEGATIVE); CLARITY/URINE CLEAR (CLEAR); COLOR,URINE YELLOW (YELLOW); GLUCOSE,URINE NEGATIVE (NEGATIVE); KETONES,URINE NEGATIVE (NEGATIVE); LEUKOCYTE ESTERASE ,URINE TRACE (NEGATIVE); NITRITE, URINE NEGATIVE (NEGATIVE); PH,URINE 5.5 (5.0-8.0); PROTEIN URINE NEGATIVE (NEGATIVE); UROBILINOGEN,URINE 0.2 (0.2-1.0)
[2020-05-11 04:15] LABS: BLOOD, URINE TRACE (NEGATIVE)
[2020-05-11 04:18] LABS: BACTERIA,URINE FEW /HPF (None Seen)
[2020-05-11] MEDS ORDERED: LR 1,000 ML IV ONE (07:45)
[2020-05-11] MEDS ORDERED: LORazepam 2 MG/ML VIAL IVP PRN (07:45)
[2020-05-11] MEDS ORDERED: ONDANSETRON HCL 4 MG/2 ML VIAL IM PRN (09:00)
[2020-05-11] MEDS: KETOROLAC TROMETHAMINE 15 MG VIAL IVP PRN (09:55)
[2020-05-11 10:00] VITALS: BP_SYST 109
[2020-05-11 12:20] VITALS: BP_SYST 121
[2020-05-11] MEDS: PIPERACILLIN/TAZO 3.375/DEX-IS 50 ML IV SCH ×2 (12:24→18:45)
[2020-05-11] MEDS ORDERED: NALOXONE HCL 0.4 MG/ML AMP (NARCAN) IVP PRN ×2 (15:00)
[2020-05-11] MEDS ORDERED: cloNIDine HCL 0.1 MG TABLET PO PRN (15:00)
[2020-05-11] MEDS ORDERED: HYDROcodone/ACETAMIN 5-325 MG TAB (NORCO/ VICODIN) PO PRN (15:00)
[2020-05-11] MEDS ORDERED: POTASSIUM CHLORIDE 20 MEQ/PKT PACKET PO ONE (15:45)
[2020-05-11] MEDS: VANCOMYCIN HCL 1,000 MG in NS 250 ML IV SCH (16:39)
[2020-05-11 16:55] VITALS: BP_SYST 125
[2020-05-11 20:10] VITALS: BP_SYST 105
[2020-05-11] MEDS: POTASSIUM CHLORIDE 20 MEQ TAB.PRT.SR PO SCH (20:15)
[2020-05-11] MEDS: HYDROcodone/ACETAMIN 10-325 MG TAB PO PRN (20:30)
[2020-05-12 00:25] VITALS: BP_SYST 114
[2020-05-12] MEDS: PIPERACILLIN/TAZO 3.375/DEX-IS 50 ML IV SCH ×3 (00:30→12:00)
[2020-05-12] MEDS: VANCOMYCIN HCL 1,000 MG in NS 250 ML IV SCH ×2 (01:15→08:00)
[2020-05-12] MEDS: KETOROLAC TROMETHAMINE 15 MG VIAL IVP PRN (01:35)
[2020-05-12] MEDS: HYDROcodone/ACETAMIN 10-325 MG TAB PO PRN (06:08)
[2020-05-12 06:38] LABS: BASOPHILS # (AUTO) 0.1 K/uL (0.0-0.2); BASOPHILS % (AUTO) 0.4 % (0.0-2.0); EOSINOPHILS # (AUTO) 4.6 K/uL (0.0-0.4); EOSINOPHILS % (AUTO) 29.5 % (0.0-4.0); HEMATOCRIT 34.3 % (36-54); HEMOGLOBIN 11.7 g/dL (14.0-18.0); LYMPHOCYTES # (AUTO) 1.9 K/uL (1.0-5.5); LYMPHOCYTES % (AUTO) 12.1 % (20.5-51.5); MEAN CORPUSCULAR HEMOGLOBIN 28 pg (27-31); MEAN CORPUSCULAR HGB CONC 34 % (32-36); MEAN CORPUSCULAR VOLUME 81 fL (79.0-98.0); MONOCYTES # (AUTO) 0.6 K/uL (0.0-1.0); MONOCYTES % (AUTO) 4.1 % (1.7-9.3); NEUTROPHILS # (AUTO) 8.4 K/uL (1.8-7.7); PLATELET COUNT (AUTO) 170 K/uL (130-430); RED BLOOD CELL COUNT(AUTO) 4.24 MIL/uL (4.2-6.2); RED CELL DISTRIBUTION WIDTH 14.4 % (9.0-15.0); WHITE BLOOD COUNT (AUTO) 15.6 K/uL (4.8-10.8)
[2020-05-12 08:00] VITALS: BP_SYST 104
[2020-05-12 08:05] LABS: CREATININE 0.82 mg/dL (0.55-1.30); POTASSIUM 3.9 mmol/L (3.5-5.1); TOTAL BILIRUBIN 0.4 mg/dL (0.0-1.0)
[2020-05-12 08:06] LABS: ALBUMIN 2.3 g/dL (3.4-4.8)
[2020-05-12 08:22] LABS: NEUTROPHILS % (AUTO) 53.9 % (40.0-70.0)
[2020-05-12] MEDS: POTASSIUM CHLORIDE 20 MEQ TAB.PRT.SR PO SCH (09:00)
== END 2020-05-12 21:28 | disposition left against medical advice (07) | DRG 720 ==
LOC: SED 18:52 → STU 05-11 07:40
PROVIDERS: ADMIT Internal Medicine; ATTEND Internal Medicine
DX: A41.9 Sepsis, unspecified organism (principal); E43 Unspecified severe protein-calorie malnutrition; D64.9 Anemia, unspecified; J45.909 Unspecified asthma, uncomplicated; F19.10 Other psychoactive substance abuse, uncomplicated; Z20.828 Contact with and (suspected) exposure to other viral communicable diseases; Z53.29 Procedure and treatment not carried out because of patient's decision for other reasons; Z88.8 Allergy status to other drugs, medicaments and biological substances; Z59.0 Homelessness
CPT/HCPCS: 36415; 70491-TC; 71260-TC; 72128; 72132-TC; 80053; 80307; 81000-TC; 83605; 83735-TC; 85007; 85025; 85027; 85651-TC; 86140; 87040-TC; 87081; 96365; 96368; 96372; 99291; G0378; G0480; G0481; G0482; J1885; J2543; J3370; J7050; J7120; Q9967; U0003

== ENCOUNTER 2020-06-02 03:07 | Emergency (ER) | payer MEDICAID ==
[~2020-06-02] VITALS: Ht 185.4 cm; Wt 86.2 kg
[2020-06-02 03:07] VITALS: BP_SYST 156
--- NOTE | 2020-06-02 03:10 | NUR ---
Patient to ER bed 2 to gown for evaluation. Side rails up.
--- NOTE | 2020-06-02 03:15 | NUR ---
PT BIBA FOR SOB STARTING 1 HOUR PRIOR TO ARRIVAL. PT REPORTS HX OF ASTHMA AND RECENTLY RAN OUT OF HIS INHALER. EMS STATES THAT HE WAS AROUND A CAT PRIOR TO HIS SOB AND PT IS ALLERGIC TO CAT AND DOG DANDER. PT RECEIVED BREATHING TX X 1 EN ROUTE. PT PRESENTS AAOX4, SOME WHEEZING IN BILATERAL LUNGS. V/S STABLE
--- NOTE | 2020-06-02 03:20 | NUR ---
ER DR. COOK AT THE BEDSIDE EVALUATING PT
[2020-06-02] MEDS ORDERED: predniSONE 20 MG TABLET PO ONE (03:45)
[2020-06-02] MEDS ORDERED: IPRATROPIUM/ALBUTEROL SULFATE 3 ML AMPUL.NEB (DUONEB) INH ONE ×2 (03:45→04:45)
--- NOTE | 2020-06-02 03:50 | NUR ---
RT AT THE BEDSIDE FOR BREATHING TX
--- NOTE | 2020-06-02 04:19 | NUR ---
PT SLEEPING IN BED, NO S/SX OF DISTRESS
--- NOTE | 2020-06-02 04:45 | NUR ---
RT AT THE BEDSIDE FOR BREATHING TX
--- NOTE | 2020-06-02 05:37 | NUR ---
Patient given written and verbal discharge instructions and verbalizes understanding. ER MD discussed with patient the results and treatment provided. Patient in stable condition. ID arm band removed. Rx of PREDNISONE AND ALBUTEROL given. Patient educated on pain management and to follow up with PMD. Pain Scale 0/10. Opportunity for questions provided and answered. Medication side effect fact sheet provided.
[2020-06-02 06:05] VITALS: BP_SYST 142
== END 2020-06-02 06:05 | disposition home or self-care (01) ==
LOC: SED 03:07
DX: J45.901 Unspecified asthma with (acute) exacerbation (principal); Z88.8 Allergy status to other drugs, medicaments and biological substances
CPT/HCPCS: 94640; 99284

== ENCOUNTER 2020-09-02 11:39 | Emergency (ER) | payer MEDICAID ==
[~2020-09-02] VITALS: Ht 185.4 cm; Wt 79.4 kg
[2020-09-02 11:53] VITALS: BP_SYST 127
[2020-09-02] MEDS ORDERED: TRAM50TA2 PO (12:12)
[2020-09-02] MEDS ORDERED: SULF1TAB48 PO (12:12)
[2020-09-02 12:15] VITALS: BP_SYST 127
== END 2020-09-02 12:15 | disposition home or self-care (01) ==
LOC: SED 11:39
DX: L03.115 Cellulitis of right lower limb (principal); J45.909 Unspecified asthma, uncomplicated; Z79.899 Other long term (current) drug therapy; Z88.8 Allergy status to other drugs, medicaments and biological substances
CPT/HCPCS: 99283

== ENCOUNTER 2021-08-17 19:02 | Emergency (ER) | payer MEDICAID ==
[~2021-08-17] VITALS: Ht 185.4 cm; Wt 81.6 kg
[~2021-08-17 19:02] MED LIST changes: +ALBMDI INH; +PRED20TA PO; +SULF1TAB48 PO; +TRAM50TA2 PO
[2021-08-17 20:45] VITALS: BP_SYST 118
[2021-08-17] MEDS ORDERED: IPRATROPIUM/ALBUTEROL SULFATE 3 ML AMPUL.NEB (DUONEB) INH ONE (21:15)
[2021-08-17] MEDS ORDERED: predniSONE 20 MG TABLET PO ONE (21:15)
--- NOTE | 2021-08-17 22:29 | NUR ---
DR. COOK IN TENT FOR ASSESSMENT. PATIENT IS NOT IN TENT. PATIENT LEFT WITHOUT BEING SEEN
== END 2021-08-17 22:29 | disposition left against medical advice (07) ==
LOC: SED 19:02
DX: R06.02 Shortness of breath (principal); Z53.21 Procedure and treatment not carried out due to patient leaving prior to being seen by health care provider
CPT/HCPCS: 94640

== ENCOUNTER 2021-12-15 23:47 | Inpatient (IN) | payer MEDICAID ==
[~2021-12-15] VITALS: Ht 185.4 cm; Wt 83.9 kg
--- NOTE | 2021-12-15 23:59 | NUR ---
Placed in room 7 . Placed on air quality engineer, blood pressure machine and pulse oximeter. To gown for exam. Side rails up. Report given to Tabitha DOYLE.
[2021-12-16] VITALS: BP_SYST 116
--- NOTE | 2021-12-16 00:03 | NUR ---
RAD at bedside for imaging.
--- NOTE | 2021-12-16 00:15 | NUR ---
ER at bedside examining patient.
--- NOTE | 2021-12-16 00:20 | NUR ---
Pt brought self in from home due to c/o SOB, sore throat, headache x1 day. Afebrile. Pt o2 sat @ 90 % upon arrival, placed on 2 LPM via NC for comfort. O2 sat increased to 96% at this time. No signs of respiratory distress. HOB elevated for comfort. Reports PMH of Asthma.
[2021-12-16 01:02] LABS: BASOPHILS % (AUTO) 0.7 % (0.0-2.0); EOSINOPHILS # (AUTO) 0.1 K/uL (0.0-0.4); EOSINOPHILS % (AUTO) 1.7 % (0.0-4.0); HEMATOCRIT 39.2 % (36-54); HEMOGLOBIN 13.7 g/dL (14.0-18.0); LYMPHOCYTES # (AUTO) 0.9 K/uL (1.0-5.5); LYMPHOCYTES % (AUTO) 13.7 % (20.5-51.5); MEAN CORPUSCULAR HEMOGLOBIN 29 pg (27-31); MEAN CORPUSCULAR HGB CONC 35 % (32-36); MEAN CORPUSCULAR VOLUME 84 fL (79.0-98.0); MONOCYTES # (AUTO) 0.7 K/uL (0.0-1.0); MONOCYTES % (AUTO) 10.8 % (1.7-9.3); NEUTROPHILS # (AUTO) 4.7 K/uL (1.8-7.7); NEUTROPHILS % (AUTO) 73.1 % (40.0-70.0); PLATELET COUNT (AUTO) 186 K/uL (130-430); RED BLOOD CELL COUNT(AUTO) 4.69 MIL/uL (4.2-6.2); RED CELL DISTRIBUTION WIDTH 14.5 % (9.0-15.0); WHITE BLOOD COUNT (AUTO) 6.4 K/uL (4.8-10.8)
[2021-12-16 01:13] LABS: CALCIUM 8.3 mg/dL (8.4-11.0); CREATININE 1.02 mg/dL (0.55-1.30); POTASSIUM 3.6 mmol/L (3.5-5.1)
[2021-12-16 01:27] LABS: ALBUMIN 3.2 g/dL (3.4-4.8); TOTAL BILIRUBIN 0.4 mg/dL (0.0-1.0)
[2021-12-16] MEDS ORDERED: ACETAMINOPHEN 500 MG TABLET ONE (01:54)
[2021-12-16] MEDS ORDERED: ACETAMINOPHEN 500 MG TABLET PO ONE (02:00)
[2021-12-16] MEDS ORDERED: OSELTAMIVIR PHOSPHATE 75 MG CAPSULE PO ONE (02:15)
[2021-12-16] MEDS ORDERED: cefTRIAXone 1 GM IVPB PREMIX 50 ML IV ONE (02:15)
[2021-12-16] MEDS ORDERED: AZITHROMYCIN 250 MG TABLET PO ONE (02:15)
[2021-12-16] MEDS ORDERED: IBUPROFEN 800 MG TABLET PO ONE (02:45)
--- NOTE | 2021-12-16 05:04 | NUR ---
Admit bed requested Patient will be admitted to care of Dr.A PAREDES. Admitted to TELE unit. Diagnosis PNA,RESP FAILURE Inpatient (Yes or No) YES Observation (Yes or No) NO Orientation concerns or request close to nursing station (Yes or No) NO Covid Status NEGATive On vent or bipap no Isolation requirements (influenza positive) Needs a sitter NO From Home (Yes or if No enter name of facility) YES Requires Dialysis (Yes or No) NO Med Rec Completed (Yes of No) PENDING
[2021-12-16 06:38] VITALS: BP_SYST 135
--- NOTE | 2021-12-16 06:43 | NUR ---
Patient will be admitted to care of MD Carnes. Admitted to Tele unit. Will go to room 123B. Complete and up to date summary report printed. SBAR report given at bedside to VIVEK Fregoso with opportunity for questions.
--- NOTE | 2021-12-16 06:46 | NUR ---
CONSULT ID PNEUMONIA [facility] [phone] S/W CINDY EXCHANGE
[2021-12-16 07:57] VITALS: BP_SYST 135
--- NOTE | 2021-12-16 08:00 | NUR ---
Initial notes In bed, awake. eating breakfast. complain of shortness of breath, o2 sat in room air is 95%, refused oxygen, just want breathting treatment. Seen by Dr. Mena and aware. oriented to call light use. Denies any pain, afebrile.
[2021-12-16] MEDS: OSELTAMIVIR PHOSPHATE 75 MG CAPSULE PO SCH ×3 (08:59→20:57)
--- NOTE | 2021-12-16 09:00 | NUR ---
Belongings- Patient is looking for his eyeglasses. pty stated that he left it in he ER. Called ER and stated that they don't see any glasses. Informed security.
[2021-12-16 10:16] VITALS: BP_SYST 135
--- NOTE | 2021-12-16 11:00 | NUR ---
CM: CALL PLACED TO [facility], MESSAGE LEFT ON SERVICE FOR CM GONZALO WITH CALL BACK INFO, AWAITING CALL BACK. Addendum: 12/16/21 at 1322 by Eula Marlow RN CM: 2ND CALL TO [facility], , MESSAGE LEFT ON ANSWERING SERVICE WITH CALL BACK # AND BRIEF MESSAGE, AWAITING CALL BACK AT TTHIS TIME.
[2021-12-16] MEDS ORDERED: NALOXONE HCL 0.4 MG/ML AMP (NARCAN) IVP PRN ×2 (11:30)
[2021-12-16] MEDS ORDERED: LORazepam 2 MG/ML VIAL IVP PRN (11:30)
[2021-12-16] MEDS ORDERED: HYDROcodone/ACETAMIN 10-325 MG TAB PO PRN (11:30)
[2021-12-16] MEDS ORDERED: ACETAMINOPHEN 325 MG TABLET PO PRN ×2 (11:30→12:00)
[2021-12-16] MEDS ORDERED: ONDANSETRON HCL 4 MG/2 ML VIAL IVP PRN (11:30)
[2021-12-16] MEDS ORDERED: HYDROcodone/ACETAMIN 5-325 MG TAB (NORCO/ VICODIN) PO PRN (11:30)
[2021-12-16] MEDS: BUDESONIDE 0.5 MG/2 ML AMPUL.NEB INH SCH ×2 (11:44→11:45)
[2021-12-16] MEDS: IPRATROPIUM/ALBUTEROL SULFATE 3 ML AMPUL.NEB (DUONEB) INH SCH ×4 (11:44→20:29)
--- NOTE | 2021-12-16 12:00 | NUR ---
Notes Resting in bed, no distress, maintain on droplet isolation. Lunch provided.
[2021-12-16] MEDS ORDERED: AZITHROMYCIN 500 MG in NS 250 ML IV SCH (13:00)
[2021-12-16] MEDS ORDERED: NORMAL SALINE 5 ML DISP.SYRIN IVF SCH ×2 (14:00)
[2021-12-16] MEDS ORDERED: cefTRIAXone 1 GM IVPB PREMIX 50 ML IV SCH (14:00)
--- NOTE | 2021-12-16 14:30 | NUR ---
NOTES- RESTING IN BED, NO DISTRESS. ENC TO CALL FOR HELP NEEDED.
[2021-12-16] MEDS ORDERED: IPRATROPIUM BROM 0.5 MG/2.5 ML VIAL.NEB (ATROVENT) INH SCH (15:00)
[2021-12-16] MEDS ORDERED: ALBUTEROL SULFATE 0.083% 2.5 MG/3 ML VIAL.NEB INH SCH (15:00)
[2021-12-16 16:02] VITALS: BP_SYST 105
[2021-12-16] MEDS ORDERED: BENZOCAINE/MENTHOL 1 EACH LOZENGE MM PRN (17:00)
--- NOTE | 2021-12-16 17:00 | NUR ---
NOTES- PT COMPLAINS OF SORE THROAT, PATIENT PROVIDED WARM LEMONADE WITH HONEY AND SPOKE TO DR. PAREDES AND ORDERED SOME LOZENGES FOR PATIENT.
--- NOTE | 2021-12-16 19:25 | NUR ---
REPORT GIVEN OUTSIDE OF ROOM DUE TO PT BEING ON ISOLATION FOR INFLUENZA. PT AOX4, AMBULATORY. ALL NEEDS MEET AT THIS TIME. WILL CONTINUE TO MONITOR.
--- NOTE | 2021-12-16 20:30 | NUR ---
pt c/o chest tightness and sore throat to health unit supervisor. notified by health unit supervisor.
--- NOTE | 2021-12-16 21:00 | NUR ---
WENT TO GIVE PT 2100 MEDICATION. PT NOT IN ROOM. GOWN IS IN BED. ALL BELONGINGS ARE GONE. PT ELOPED WITHOUT TELLING ANYONE. PT DID NOT REMOVE IV ACCESS. PT WAS NOT SCENE BY ANYONE WHEN HE LEFT. NO DOOR ALARMS WERE ACTIVATED. VICE PRESIDENT INDUSTRIAL RELATIONS DID NOT SEE ANYONE LEAVING HOSPITAL WITH PT DESCRIPTION. SEARCHED HOSPITAL DID NOT FIND PATIENT. CALLED NUMBER ON FILE AND PERSON STATED IT WAS THE WRONG NUMBER. NEXT OF KIN NUMBER ON FILE DID NOT WORK. NOTIFIED CHARGE NURSE AND HOUSE SUP. [facility] WAS CALLED AND DESCRIPTION OF PATIENT AND SITUATION WAS PROVIDED.
--- NOTE | 2021-12-17 00:03 | NUR ---
SENT A MESSAGE TO DR. BIJU PONCE THIS EVENING I SPOKE WITH MAR CUELLAR
--- NOTE | 2021-12-17 06:00 | NUR ---
NOTIFIED DR PAREDES PT ELOPED LAST NIGHT AT START OF SHIFT
== END 2021-12-16 20:50 | disposition left against medical advice (07) | DRG 133 ==
LOC: SED 23:47 → STU 12-16 04:59 → SMU 12-16 12:54
PROVIDERS: ADMIT Preventive Medicine Preventive Medicine/Occupational Environmental Medicine; ATTEND Preventive Medicine Preventive Medicine/Occupational Environmental Medicine
DX: J96.01 Acute respiratory failure with hypoxia (principal); E44.0 Moderate protein-calorie malnutrition; E87.1 Hypo-osmolality and hyponatremia; J45.901 Unspecified asthma with (acute) exacerbation; E88.09 Other disorders of plasma-protein metabolism, not elsewhere classified; J11.1 Influenza due to unidentified influenza virus with other respiratory manifestations; F15.90 Other stimulant use, unspecified, uncomplicated; Z20.822 Contact with and (suspected) exposure to COVID-19; E83.52 Hypercalcemia; R74.01 Elevation of levels of liver transaminase levels; Z91.09 Other allergy status, other than to drugs and biological substances; Z79.899 Other long term (current) drug therapy; Z72.0 Tobacco use; F10.10 Alcohol abuse, uncomplicated
CPT/HCPCS: 36415; 36600; 71045; 80053; 82550; 82803-TC; 84484; 85025; 87040; 93005; 94640; 94760; 96365; 99285; G9035; J0456; J0696; J7050; J7626; Q0144

== ENCOUNTER 2022-01-08 21:47 | Emergency (ER) | payer MEDICAID ==
[~2022-01-08] VITALS: Ht 182.9 cm; Wt 81.6 kg
--- NOTE | 2022-01-08 21:50 | NUR ---
Pt to ED w/ c/o SOB/dyspnea w/ history of asthma. Respirations labored and tachypneic. Pt placed on NC @ 2 L for comfort. O2 Saturation 97% on room air. Ambulates with strong steady gait. Pt sounds "out of breath" while speaking.
[2022-01-08 21:51] VITALS: BP_SYST 124
--- NOTE | 2022-01-08 22:22 | NUR ---
Placed in room 2 . Placed on nurse monitoring, blood pressure machine and pulse oximeter. To gown for exam. Side rails up. Report given to Faye DOYLE(mamadou)/Karina DOYLE.
--- NOTE | 2022-01-08 22:28 | NUR ---
NATI BRYANT at bedside examining patient.
[2022-01-08] MEDS ORDERED: ALBUTEROL SULFATE 0.083% 2.5 MG/3 ML VIAL.NEB INH ONE (22:30)
[2022-01-08] MEDS ORDERED: ALBU8.5H8 INH (22:43)
[2022-01-08] MEDS ORDERED: PRED20TA PO (22:43)
[2022-01-08] MEDS ORDERED: predniSONE 20 MG TABLET PO ONE (22:45)
--- NOTE | 2022-01-08 22:45 | NUR ---
RT AT BEDSIDE
[2022-01-08 23:13] VITALS: BP_SYST 127
--- NOTE | 2022-01-08 23:13 | NUR ---
Patient given written and verbal discharge instructions and verbalizes understanding. ER MD discussed with patient the results and treatment provided. Patient in stable condition. ID arm band removed. Rx of PROAIR AND PREDNISONE given. Patient educated on pain management and to follow up with PMD. Pain Scale 0/10 Opportunity for questions provided and answered. Medication side effect fact sheet provided.
== END 2022-01-08 23:13 | disposition home or self-care (01) ==
LOC: SED 21:47
DX: J45.901 Unspecified asthma with (acute) exacerbation (principal); R07.9 Chest pain, unspecified; Z79.899 Other long term (current) drug therapy
CPT/HCPCS: 71045; 99283; J7512; J7613

== ENCOUNTER 2022-09-23 19:17 | Emergency (ER) | payer MEDICAID ==
[~2022-09-23] VITALS: Ht 188 cm; Wt 90.7 kg
[~2022-09-23 19:17] MED LIST changes: +ALBU8.5H8 INH
--- NOTE | 2022-09-23 19:25 | NUR ---
Patient to ER bed 07 to gown for evaluation. Side rails up. Report given to VIVEK KANG.
[2022-09-23 19:26] VITALS: BP_SYST 145
--- NOTE | 2022-09-23 19:33 | NUR ---
DR. LEUNG AT BEDSIDE WITH PATIENT FOR MSE.
--- NOTE | 2022-09-23 19:39 | NUR ---
PT RESTING, AOX4 BIBA C/O SOB GIVEN AN ALBUTEROL TX BY FIRE DEPT, PT NOW STATES HE FEELS MUCH BETTER. FROM REPORT PT DID NOT FILL HIS ALBUTEROL PERSCRIPTION. PT ON MASK AT 6LPM, LOWERED BED PER PT REQUEST, EVEN UNLABORED RESPIRATIONS, NAD, VSS.
[2022-09-23] MEDS ORDERED: predniSONE 20 MG TABLET PO ONE (19:45)
--- NOTE | 2022-09-23 19:49 | NUR ---
bilateral wheezing upper and lower on inhalation and exhalation on auscultation, pt is nad, pt states he is feeling better and would like a continous perscription of the albuterol inhaler.
[2022-09-23] MEDS ORDERED: ALBUTEROL SULFATE 0.083% 2.5 MG/3 ML VIAL.NEB INH ONE (20:15)
[2022-09-23] MEDS ORDERED: PRED20TA PO (20:54)
[2022-09-23] MEDS ORDERED: ALBMDI INH (20:54)
--- NOTE | 2022-09-23 21:00 | NUR ---
Patient given written and verbal discharge instructions and verbalizes understanding. ER DR. LEUNG discussed with patient the results and treatment provided. Patient in stable condition. ID arm band removed. Rx of PREDNISONE AND ALBUTEROL given. Patient educated on pain management and to follow up with PMD. Pain Scale 0. Opportunity for questions provided and answered. Medication side effect fact sheet provided.
[2022-09-23 21:06] VITALS: BP_SYST 134
== END 2022-09-23 21:00 | disposition home or self-care (01) ==
LOC: SED 19:17
DX: J45.901 Unspecified asthma with (acute) exacerbation (principal); R06.02 Shortness of breath; Z88.8 Allergy status to other drugs, medicaments and biological substances; Z79.899 Other long term (current) drug therapy
CPT/HCPCS: 99283; J7512; J7613

== ENCOUNTER 2022-11-24 10:11 | Emergency (ER) | payer MEDICAID ==
[~2022-11-24] VITALS: Ht 188 cm; Wt 90.7 kg
[2022-11-24 10:11] VITALS: BP_SYST 129
--- NOTE | 2022-11-24 10:11 | NUR ---
BROUGHT BACK TO BED #8 AND TRIAGED. REPORT GIVEN TO NORA
--- NOTE | 2022-11-24 10:25 | NUR ---
ER at bedside examining patient.
--- NOTE | 2022-11-24 10:44 | NUR ---
Pt BIB self from home. C/O SOB with chest tightness, wheezing in bilateral lobes. PT states exposure to COVID at home. Afebrile. AAOX3. Speaking full clear sentences. RR even and unlabored. VSS. Pt states out of inhaler.
[2022-11-24] MEDS ORDERED: IPRATROPIUM/ALBUTEROL SULFATE 3 ML AMPUL.NEB (DUONEB) INH ONE (10:45)
[2022-11-24] MEDS ORDERED: predniSONE 20 MG TABLET PO ONE (10:45)
--- NOTE | 2022-11-24 10:47 | NUR ---
RESPIRATORY AT BEDSIDE
--- NOTE | 2022-11-24 10:55 | NUR ---
CHAVEZ SWABBED AND SENT TO LAB
[2022-11-24] MEDS ORDERED: PRED20TA PO (11:22)
[2022-11-24] MEDS ORDERED: ALBMDI INH (11:22)
--- NOTE | 2022-11-24 11:26 | NUR ---
Patient given written and verbal discharge instructions and verbalizes understanding. ER MD discussed with patient the results and treatment provided. Patient in stable condition. ID arm band removed. Rx of ALBUTEROL PRESNISONE given. Patient educated on pain management and to follow up with PMD. Opportunity for questions provided and answered. Medication side effect fact sheet provided.
[2022-11-24 11:33] VITALS: BP_SYST 129
== END 2022-11-24 11:26 | disposition home or self-care (01) ==
LOC: SED 10:11
DX: J45.901 Unspecified asthma with (acute) exacerbation (principal); R05.9 Cough, unspecified; R06.02 Shortness of breath; R68.83 Chills (without fever); Z88.8 Allergy status to other drugs, medicaments and biological substances; Z79.899 Other long term (current) drug therapy; Z20.822 Contact with and (suspected) exposure to COVID-19
CPT/HCPCS: 99283; 87426; 36415; 94760; J7512

== ENCOUNTER 2023-04-08 18:03 | Emergency (ER) | payer OTHER, MEDICAID ==
[~2023-04-08] VITALS: Ht 185.4 cm; Wt 97.5 kg
[2023-04-08 18:40] VITALS: BP_SYST 124; PULSE 88; O2SAT 97
[2023-04-08] MEDS ORDERED: MORPHINE 4 MG INJ. 4 MG/ML VIAL IVP ONE ×2 (19:30→23:00)
[2023-04-08] MEDS ORDERED: NACL 0.9% 1,000 ML IV ONE (19:30)
[2023-04-08] MEDS ORDERED: ONDANSETRON HCL 4 MG/2 ML VIAL IVP ONE (19:30)
[2023-04-08] MEDS ORDERED: BACITRACIN 1 GM OINT TP ONE (20:00)
[2023-04-08] MEDS ORDERED: KETAMINE 30 MG/3 ML SYRINGE IVP ONE (21:15)
[2023-04-08] MEDS ORDERED: KETAMINE HCL IN 0.9 % NACL 50 MG/5 ML SYRINGE ONE (21:33)
[2023-04-08] MEDS ORDERED: PROPOFOL 200MG/ 20ML VIAL (DIPRIVAN) IV ONE (21:45)
[2023-04-08] MEDS ORDERED: IBUP-1969 PO (22:17)
[2023-04-08] MEDS ORDERED: HYDR-3917 PO ×2 (22:17)
[2023-04-08 22:31] VITALS: TEMP 100.1
[2023-04-09 00:38] VITALS: BP_SYST 103; PULSE 103; RESP 18; O2SAT 95
[2023-04-10] MEDS ORDERED: HYDR-3927 PO (11:26)
== END 2023-04-09 00:38 | disposition home or self-care (01) ==
LOC: SED 18:03
DX: S52.572A Other intraarticular fracture of lower end of left radius, initial encounter for closed fracture (principal); S52.612A Displaced fracture of left ulna styloid process, initial encounter for closed fracture; J45.909 Unspecified asthma, uncomplicated; Z79.899 Other long term (current) drug therapy; V28.01XA Electric (assisted) bicycle driver injured in noncollision transport accident in nontraffic accident, initial encounter; Y93.89 Activity, other specified; Y92.89 Other specified places as the place of occurrence of the external cause; Y99.8 Other external cause status
CPT/HCPCS: 25605; 73110; 99152; 96375; 99285; 96374; 96361; 96376; 73100; J2405; J2704; J2270; J7030